=== PATIENT | female | born 1930 | race Caucasian/White ===

== ENCOUNTER 2017-02-03 09:40 | Emergency (ER) | payer MEDICAID, OTHER ==
[~2017-02-03] VITALS: Ht 157.5 cm; Wt 73.3 kg
[~2017-02-03 09:40] MED LIST: BENZ100 PO; CYCL-36 PO; LISI-587 PO; NAPR-576 PO; POTA-243 PO; SIMV10 PO; TAB-TAB PO; ZITH250T PO
[2017-02-03 09:54] VITALS: BP 165/77; PULSE 91; RESP 20; TEMP 98.4; O2SAT 94
[2017-02-03] MEDS ORDERED: LISI20TA PO (10:04)
[2017-02-03] MEDS ORDERED: DONE10TA7 PO ×2 (10:04)
[2017-02-03] MEDS ORDERED: POTA10CA PO (10:04)
[2017-02-03] MEDS ORDERED: ATOR40TA16 PO (10:04)
[2017-02-03] MEDS ORDERED: DOXY100C PO (11:05)
--- NOTE | 2017-02-03 11:08 | PD ---
HPI Chief Complaint: Cold / Flu Symptoms Time Seen by Provider: 10:43 Travel History International Travel<30 days: No Contact w/Intl Traveler<30days: No Traveled to known affect area: No History of Present Illness HPI 86-year-old female presents to the emergency room for evaluation of mildly productive cough and chest congestion for the past. Daughter is sick with the same symptoms. She has had no fever, chills, nausea, vomiting, chest pain, or shortness of breath. She has mild associated congestion and sore throat. She has history of hypertension, dementia, and hypercholesterolemia. She is alert and oriented times for during history and physical exam. PFSH Past Medical History Cancer: No Cardiovascular Problems: No High Cholesterol: Yes Diabetes: No Diminished Hearing: No Glaucoma: No Hepatitis: No Hiatal Hernia: No Hypertension: Yes Medical other: No Respiratory: No Thyroid Disease: No Tetanus Vaccination: Unknown ?: Not Menopausal: Yes Past Surgical History Gynecologic Surgery: Yes (HYSTERECTOMY) Hysterectomy: Yes Other Surgery: Yes (BACK SURGERY) Social History Alcohol Use: Yes (OCCAS. WINE) Tobacco Use: No Substance Use: No Allergies-Medications (Allergen,Severity, Reaction): Coded Allergies: No Known Allergies (Unverified Adverse Reaction, Unknown, 02/03/17) Reported Meds & Prescriptions Reported Meds & Active Scripts Active Doxycycline Hyclate 100 Mg Cap 100 Mg PO BID 7 Days Reported Atorvastatin (Atorvastatin Calcium) 40 Mg Tab 40 Mg PO HS Donepezil 10 Mg Tab 10 Mg PO DAILY Lisinopril-Hctz 20-12.5 Mg Tab 1 Tab PO DAILY Potassium Chloride ER (Potassium Chloride) 10 Meq Cap 10 Meq PO DAILY Review of Systems Except as stated in HPI: all other systems reviewed are Neg Physical Exam Narrative GENERAL: Well-nourished, well-developed female in no acute distress. Afebrile. Ambulatory. SKIN: Focused skin assessment warm/dry. HEAD: Normocephalic. EYES: No scleral icterus. No injection or drainage. NECK: Supple, trachea midline. No JVD or lymphadenopathy. ENT: Mucosa pink and moist. No erythema or exudates. No uvular edema. No uvular , palatal, or tonsillar deviation. Airway patent. Nasal turbinates appear normal without nasal blood, purulent drainage or septal hematoma. CARDIOVASCULAR: Regular rate and rhythm without murmurs, gallops, or rubs. RESPIRATORY: Breath sounds equal bilaterally. No accessory muscle use. No crackles, rales, wheezes, or rhonchi. Data Data Last Documented VS Vital Signs Date Time Temp Pulse Resp B/P (MAP) Pulse Ox O2 Delivery O2 Flow Rate FiO2 02/03/17 09:54 98.4 91 20 165/77 (106) 94 MDM Medical Decision Making Medical Screen Exam Complete: Yes Emergency Medical Condition: Yes Medical Record Reviewed: Yes Differential Diagnosis URI, bronchitis, pneumonia Narrative Course 86-year-old female presents to the emergency room for evaluation of mild productive cough for the past week. Daughter sick with similar symptoms. Lung sounds clear and equal bilaterally. Vital signs stable. She is extremely nontoxic appearing. Patient is 94% on room air which is stable from previous. She denies chest pain, shortness of breath, fever, chills, nausea, vomiting. Patient will be discharged with prescription for doxycycline and told to follow- up with her primary care physician and return for worsening symptoms. She understands and agrees to plan. Diagnosis Primary Impression: Bronchitis Referrals: Primary Care Physician Additional Instructions: Rest and drink plenty of fluids. Take doxycycline as directed, until gone. Follow-up with a primary care physician. Return to the emergency room for worsening symptoms. Med/Other Pt SpecificInfo: Prescription(s) given Scripts Doxycycline Hyclate (Doxycycline Hyclate) 100 Mg Cap 100 MG PO BID for Infection for 7 Days, #14 CAP 0 Refills Prov: Jono Vital MD 02/03/17 Disposition: 01 DISCHARGE HOME Condition: Stable Ashley Watkins Feb 03, 2017 11:08
== END 2017-02-03 11:21 | disposition home or self-care (01) ==
LOC: PHEFT 09:40
DX: J40 Bronchitis, not specified as acute or chronic (principal); E78.00 Pure hypercholesterolemia, unspecified; I10 Essential (primary) hypertension
CPT/HCPCS: 99283

== ENCOUNTER 2017-08-08 09:49 | Emergency (ER) | payer OTHER ==
[~2017-08-08] VITALS: Ht 154.9 cm; Wt 66.0 kg
[~2017-08-08 09:49] MED LIST changes: +ATOR40TA16 PO; -BENZ100 PO; -CYCL-36 PO; +DONE10TA7 PO; +DOXY100C PO; -LISI-587 PO; +LISI20TA PO; -NAPR-576 PO; -POTA-243 PO; +POTA10CA PO; -SIMV10 PO; -TAB-TAB PO; -ZITH250T PO
[2017-08-08 10:15] VITALS: BP 142/97; PULSE 82; RESP 18; TEMP 98.1; O2SAT 93
--- NOTE | 2017-08-08 11:16 | PD ---
HPI Chief Complaint: Back/ Neck Pain or Injury Time Seen by Provider: 11:01 Travel History International Travel<30 days: No Contact w/Intl Traveler<30days: No Traveled to known affect area: No History of Present Illness HPI Patient presents to the emergency department complaining of back pain. Patient fell 2 weeks ago on the shower has been complaining of lower back pain since. He was seen by her family doctor 1 week ago and given tramadol, naproxen, and a steroid shot in the buttocks which helped for 1 day. She denies headache, neck pain, fever, chills, notes this, tingling, chest pain, abdominal pain, new urine or bowel changes. States that prior to the fall she was having issues with urinary incontinence. PFSH Past Medical History Cancer: No Cardiovascular Problems: No High Cholesterol: Yes Diabetes: No Diminished Hearing: No Glaucoma: No Hepatitis: No Hiatal Hernia: No Hypertension: Yes Respiratory: No Thyroid Disease: No Menopausal: Yes Past Surgical History Gynecologic Surgery: Yes (HYSTERECTOMY) Hysterectomy: Yes (at age 34) Other Surgery: Yes (BACK SURGERY) Social History Alcohol Use: Yes (OCCAS. WINE) Tobacco Use: No Substance Use: No Allergies-Medications (Allergen,Severity, Reaction): Coded Allergies: No Known Allergies (Unverified Adverse Reaction, Unknown, 08/08/17) Reported Meds & Prescriptions Reported Meds & Active Scripts Active Naproxen 375 Mg Tab 375 Mg PO BID PRN 5 Days Robaxin (Methocarbamol) 500 Mg Tab 500 Mg PO BID 5 Days Keflex (Cephalexin) 500 Mg Cap 500 Mg PO Q12H 5 Days Reported Atorvastatin (Atorvastatin Calcium) 40 Mg Tab 40 Mg PO HS Donepezil 10 Mg Tab 10 Mg PO DAILY Lisinopril-Hctz 20-12.5 Mg Tab 1 Tab PO DAILY Potassium Chloride ER (Potassium Chloride) 10 Meq Cap 10 Meq PO DAILY Review of Systems Except as stated in HPI: all other systems reviewed are Neg Physical Exam Narrative GENERAL: No acute distress. SKIN: Focused skin assessment warm/dry. HEAD: Atraumatic. Normocephalic. EYES: Ocular muscles intact bilaterally. No scleral icterus. No injection or drainage. ENT: No nasal bleeding or discharge. Mucous membranes pink and moist. NECK: Trachea midline. No JVD. No focal C-spine tenderness. CARDIOVASCULAR: Regular rate and rhythm. No murmur appreciated. Focal T-spine tenderness. RESPIRATORY: No accessory muscle use. Clear to auscultation. Breath sounds equal bilaterally. GASTROINTESTINAL: Abdomen soft, non-tender, nondistended. Normal rectal tone. MUSCULOSKELETAL: No obvious deformities. No clubbing. No cyanosis. No edema. Positive L-spine tenderness to palpation. Negative straight leg test. No saddle anesthesia. NEUROLOGICAL: Awake and alert. No obvious cranial nerve deficits. Motor grossly within normal limits. Normal speech. PSYCHIATRIC: Appropriate mood and affect; insight and judgment normal. Data Data Last Documented VS Vital Signs Date Time Temp Pulse Resp B/P (MAP) Pulse Ox O2 Delivery O2 Flow Rate FiO2 08/08/17 10:15 98.1 82 18 142/97 (112) 93 Orders Orders Urinalysis - C+S If Indicated (08/08/17 11:11) Spine, Lumbar - Ltd (Ap & Lat) (08/08/17 11:11) Ketorolac Inj (Toradol Inj) (08/08/17 12:45) Urine Culture (08/08/17 12:20) Labs Laboratory Tests Test 08/08/17 12:20 Urine Color DARK-YELLOW Urine Turbidity HAZY Urine pH 6.0 Urine Specific [place] 1.022 Urine Protein 30 mg/dL Urine Glucose (UA) NEG mg/dL Urine Ketones NEG mg/dL Urine Occult Blood NEG Urine Nitrite NEG Urine Bilirubin NEG Urine Urobilinogen 2.0 MG/DL Urine Leukocyte Esterase LARGE Urine RBC 6 /hpf Urine WBC 17 /hpf Urine Squamous Epithelial Cells 35 /hpf Urine Bacteria OCC /hpf Urine Hyaline Casts 36 /lpf Urine Mucus MANY /lpf Microscopic Urinalysis Comment CULTURE INDICATED MDM Medical Decision Making Medical Screen Exam Complete: Yes Emergency Medical Condition: Yes Interpretation(s) Urinalysis: Positive UTI, culture pending L spine XR: FINDINGS: 5 nonrib-bearing lumbar-type vertebra. The fifth vertebra has an enlarged left transverse process which articulates with the upper sacrum. There are diffuse mild to moderate degenerative disc changes with disc space narrowing and mild hypertrophic change. There is diffuse osteopenia with no acute fracture. There is a grade 1 anterior spondylolisthesis of L4 on L5 of approximately 8 mm. The sacrum is intact. There is minimal scoliosis. There are degenerative change involving the lower facet joints with sclerosis and narrowing. CONCLUSION: 1. Grade 1 anterior spondylolisthesis of L4 on L5 of approximately 8 mm. 2. Mild to moderate diffuse degenerative disc change. 3. Osteopenia and minimal scoliosis. Differential Diagnosis L-spine fracture, L-spine dislocation, sciatica, musculoskeletal back pain Narrative Course Patient presents to the emergency department complaining of lower back pain and increased urination. Will check L-spine x-ray and urinalysis with culture and sensitivity if indicated. Physician Communication Physician Communication Spoke to Dr. James at [facility] and discussed lab and XR results and patient's presentation. He agreed with keflex 500mgBID. States patient has good renal function and they gave her naproxen 375mg po BID prn and Robaxin 500mg po BID both for 10 days. Advised to give a few more as patient may have run out. Question of compliance when I spoke to patient and her daughter. States that patient should call tomorrow for an appointment the first part of this upcoming week. Diagnosis Primary Impression: Back pain Qualified Codes: M54.5 - Low back pain Additional Impression: Urinary tract infection Qualified Codes: N30.00 - Acute cystitis without hematuria Patient Instructions: Back Pain (ED), Dysuria (ED), General Instructions Additional Instructions: 1. Call [facility] tomorrow morning for an appointment early next week. 2. Return to ER immediately for fever, vomiting, abdominal pain, worsening back pain, inability to control bowel or bladder, inability to urinate, or for any new/worrisome/worsening symptoms. Med/Other Pt SpecificInfo: Prescription(s) given Scripts Naproxen (Naproxen) 375 Mg Tab 375 MG PO BID Y for pain for 5 Days, #10 TAB 0 Refills Prov: Yolanda Staley MD 08/08/17 Methocarbamol (Robaxin) 500 Mg Tab 500 MG PO BID for Muscle Spasm for 5 Days, #10 TAB 0 Refills Prov: Yolanda Staley MD 08/08/17 Cephalexin (Keflex) 500 Mg Cap 500 MG PO Q12H for Infection for 5 Days, #10 CAP 0 Refills Prov: Yolanda Staley MD 08/08/17 Disposition: 01 DISCHARGE HOME Condition: Stable Yolanda Staley MD August 08, 2017 11:16
--- NOTE | 2017-08-08 11:49 | RADRPT ---
EXAM DATE: 08/08/2017 11:44 AM EDT AGE/SEX: 87 years / Female INDICATIONS: Pain CLINICAL DATA: This is the patient's initial encounter. Patient reports that signs and symptoms have been present for 2 weeks and indicates a pain score of 10/10. MEDICAL/SURGICAL HISTORY: Hypertension. None. COMPARISON: No prior [facility] exams available for comparison. FINDINGS: 5 nonrib-bearing lumbar-type vertebra. The fifth vertebra has an enlarged left transverse process whi ch articulates with the upper sacrum. There are diffuse mild to moderate degenerative disc changes wi th disc space narrowing and mild hypertrophic change. There is diffuse osteopenia with no acute fract ure. There is a grade 1 anterior spondylolisthesis of L4 on L5 of approximately 8 mm. The sacrum is i ntact. There is minimal scoliosis. There are degenerative change involving the lower facet joints wit h sclerosis and narrowing. CONCLUSION: 1. Grade 1 anterior spondylolisthesis of L4 on L5 of approximately 8 mm. 2. Mild to moderate diffuse degenerative disc change. 3. Osteopenia and minimal scoliosis. Electronically signed by: Chester Roque MD 08/08/2017 11:48 AM EDT
[2017-08-08] MEDS ORDERED: KETOROLAC TROMETHAMINE 60 MG/2 ML (IM) VIAL IM ONE (12:45)
[2017-08-08 12:46] LABS: BACTERIA, URINE OCC /hpf; BILIRUBIN, URINE NEG (NEG); BLOOD, URINE NEG (NEG); GLUCOSE,URINE NEG (NEG); HYALINE CAST, URINE 36 /lpf (RARE); KETONE, URINE NEG (NEG); MUCUS URINE MANY /lpf (OCC); NITRITE,URINE NEG (NEG); SQUAMOUS EPITHELIAL CELL URINE 35 /hpf (0-5); URINE COLOR DARK-YELLOW (YELLW/STRAW); URINE LEUKOCYTE ESTERASE LARGE (NEG)
[2017-08-08] MEDS ORDERED: CEPH-460 PO (12:53)
[2017-08-08] MEDS ORDERED: NAPR-855 PO ×2 (13:12→13:14)
[2017-08-08] MEDS ORDERED: ROBA500T PO (13:12)
[2017-08-08] MEDS ORDERED: WALKER/ADULT/FO1 MIS (13:44)
== END 2017-08-08 14:02 | disposition home or self-care (01) ==
LOC: NEPD 09:49
DX: M54.5 Low back pain (principal); N30.00 Acute cystitis without hematuria; E78.00 Pure hypercholesterolemia, unspecified; I10 Essential (primary) hypertension
CPT/HCPCS: 72100; 81001; 87086; 96372; 99284; J1885